=== PATIENT | male | born 1995 | race Caucasian/White ===

== ENCOUNTER 2019-03-06 15:44 | Emergency (ER) | payer BC ==
--- NOTE | 2019-03-06 16:45 | EDM.PDOC ---
ED HPI GENERAL MEDICAL PROBLEM - General Chief Complaint: Upper Extremity Injury/Pain Stated Complaint: FINGER INJURY Time Seen by Provider: 03/06/19 15:58 Source of Information: Reports: Patient History Limitations: Reports: No Limitations - History of Present Illness INITIAL COMMENTS - FREE TEXT/NARRATIVE: Patient is a 23-year-old male who presents ED complaining of pain to the distal phalanx of the right second digit after hitting it with a hammer. Patient has tenderness with palpation to the distal phalanx. No bony abnormalities. Able to flex and extend the finger at all joints. No sensory deficits noted. No open wounds noted. Right Finger-Index Pain Score (Numeric/FACES): 8 - Related Data Allergies Allergy/AdvReac Type Severity Reaction Status Date / Time No Known Allergies Allergy Verified 03/06/19 15:56 Home Meds: Home Meds . [No Known Home Meds] 03/06/19 [History] Past Medical History - Past Health History Medical/Surgical History: Denies Medical/Surgical History Social & Family History - Tobacco Use Smoking Status *Q: Never Smoker - Caffeine Use Caffeine Use: Reports: Soda - Recreational Drug Use Recreational Drug Use: No Review of Systems - Review of Systems Review Of Systems: ROS reveals no pertinent complaints other than HPI. ED EXAM, GENERAL - Physical Exam Exam: See Below Exam Limited By: No Limitations General Appearance: Alert, WD/WN, No Apparent Distress Ears: Hearing Grossly Normal Nose: Normal Inspection Throat/Mouth: Normal Voice, No Airway Compromise Neck: Normal Inspection, Supple Respiratory/Chest: No Respiratory Distress, No Accessory Muscle Use Cardiovascular: Normal Peripheral Pulses, Regular Rate, Rhythm Peripheral Pulses: 2+: Radial (R) Extremities: Other (Pain with palpation of the distal phalanx of the right second finger. No bony abnormalities noted with palpation. No sensory deficits noted. No open wound noted. No pain with palpation of the remainder fingers and with palpation of the hand.) Neurological: Alert, Oriented, CN II-XII Intact, Normal Cognition, No Motor/ Sensory Deficits Psychiatric: Normal Affect, Normal Mood Skin Exam: Warm, Dry, Intact, Normal Color, No Rash. No: Ecchymosis Course - Vital Signs Last Recorded V/S: Last Vital Signs Temp 99.0 F 03/06/19 16:01 Pulse 76 03/06/19 16:01 Resp 20 03/06/19 16:01 BP 132/89 06/01/19 16:01 Pulse Ox 97 03/06/19 16:01 - Orders/Labs/Meds Orders: Active Orders 24 hr Category Date Time Status Fingers Second Digit Rt F6 [CR] Stat Exams 03/06/19 16:19 Ordered - Re-Assessments/Exams Free Text/Narrative Re-Assessment/Exam: X-ray of the right second finger will be obtained. No obvious bony abnormalities noted on x-ray of the right index finger. Reviewed with Dr. Boston. Final interpretation is pending. Return precautions were discussed with the patient. Patient voiced his understanding had no further questions or concerns. Discharge instructions as documented. Departure - Departure Time of Disposition: 16:46 Disposition: Home, Self-Care 01 Condition: Good Clinical Impression: Contusion Qualifiers: Encounter type: initial encounter Contusion area: finger Finger: index finger Damage to nail status: without damage Laterality: right Qualified Code(s): S60.021A - Contusion of right index finger without damage to nail, initial encounter - Discharge Information Referrals: PCP,None [Primary Care Provider] - Forms: ED Department Discharge Additional Instructions: No obvious fractures noted on x-ray of the right index finger. Treatment will consist of ice to affected area 4 times a day, 30 minutes in duration, do not apply ice directly on the skin. Utilize Tylenol and ibuprofen in alternating fashion for pain. Refrain from any activities that cause worsening discomfort. If pain persists see your PCP. X-ray of the finger will be read by radiology if any concerns are noted you will be notified. - My Orders Last 24 Hours: My Active Orders 03/06/19 16:19 Fingers Second Digit Rt F6 [CR] Stat - Assessment/Plan Last 24 Hours: My Active Orders 03/06/19 16:19 Fingers Second Digit Rt F6 [CR] Stat
--- NOTE | 2019-03-08 10:17 | CR ---
Right second finger: Four views centered to the right second finger were obtained. Comparison: No previous study. Joint spaces are preserved. No discrete fracture or dislocation is seen. No bony erosions are seen. No radiopaque soft tissue foreign body is seen. Impression: 1. No bony abnormality is appreciated on right second finger study. Diagnostic code #1
== END 2019-03-06 17:05 | disposition home or self-care (01) ==
LOC: JD.ED 15:44
DX: S60.021A Contusion of right index finger without damage to nail, initial encounter (principal); W27.8XXA Contact with other nonpowered hand tool, initial encounter
CPT/HCPCS: 73140-26-F6; 73140-F6; 99282; 99283-25